=== PATIENT | female | born 1975 | race Two or more races ===

== ENCOUNTER 2017-09-24 00:10 | Emergency (ER) | payer OTHER ==
[2017-09-24 04:00] VITALS: BP 147/99
[2017-09-24] MEDS ORDERED: LIDOCAINE 1% HCL (LOCAL ANESTH.) INJ 20ML MDV IJ ONE (04:15)
[2017-09-24] MEDS ORDERED: TRIAMCINOLONE 40MG/ML 1ML VIAL IM ONE (04:15)
== END 2017-09-24 05:10 | disposition home or self-care (01) ==
LOC: ER 00:10
DX: G24.3 Spasmodic torticollis (principal); M62.838 Other muscle spasm; R51 Headache
CPT/HCPCS: 70450; 96372; 99284; J2001; J3301